=== PATIENT | male | born 1980 | race Caucasian/White ===

== ENCOUNTER 2017-10-26 09:04 | Emergency (ER) | payer MEDICAID | END 2017-10-26 10:34 | disposition home or self-care (01) | LOC: D.ER 09:04 | DX: L73.2 Hidradenitis suppurativa (principal); F17.200 Nicotine dependence, unspecified, uncomplicated; I10 Essential (primary) hypertension ==

== ENCOUNTER 2017-11-09 12:43 | Emergency (ER) | payer MEDICAID | END 2017-11-09 14:20 | disposition home or self-care (01) | LOC: D.ER 12:43 | DX: J45.901 Unspecified asthma with (acute) exacerbation (principal); I10 Essential (primary) hypertension; F17.200 Nicotine dependence, unspecified, uncomplicated ==